=== PATIENT | female | born 1950 ===

== ENCOUNTER 2023-06-27 13:25 | Outpatient (CLI) | payer MEDICARE | END 2023-06-27 13:26 | disposition home or self-care (01) | LOC: MRI 13:25 | PROVIDERS: ATTEND Family Medicine | DX: M62.81 Muscle weakness (generalized) (principal); I65.22 Occlusion and stenosis of left carotid artery; H74.8X1 Other specified disorders of right middle ear and mastoid | CPT/HCPCS: 70551; 93880 ==